=== PATIENT | female | born 1990 | race Caucasian/White ===

== ENCOUNTER 2024-11-23 21:43 | Inpatient (IN) | payer OTHER, SELFPAY ==
--- NOTE | 2024-11-23 20:38 | PCM.HP.OB ---
HPI - General General Date of Admission: 11/23/24 HPI Narrative DIANE LADD, is a 33 F at 39.4 weeks gestation who presents to triage with complaints of leaking clear fluid since 1629. Positive movements. Feeling occasional contractions. Maternal Data Information ALYCIA Calculator Estimated Delivery Date Method Current WG Current Estimate 11/26/24 Manual 39w 4d PFSH PFSH Medical History no medical history Home Medications ?Medication ?Instructions ?Recorded ?Last Taken ?Type aspirin 81 mg tablet,delayed 81 mg PO DAILY prevention of pre-e 11/23/24 11/23/24 History release ferrous sulfate 325 mg (65 mg 325 mg PO DAILY anemia 11/23/24 11/23/24 History iron) tablet (FeroSul) vit no.95-ferrous 1 tab PO DAILY 11/23/24 11/23/24 History fumarate 28 mg-folic acid 800 mcg tablet ( Multivitamins) Allergy/AdvReac Type Severity Reaction Status Date / Time No Known Allergies Allergy Verified 11/23/24 21:16 Surgical History no surgical history NST FHR Rate Baby A Baseline: 140 Variability:: Moderate Accelerations:: 15 x 15 Decelerations:: None NST Reactive:: Yes FHR Category:: Category I ROS Eyes Eyes: Denies blurry vision, change in vision or spots in vision ENT HEENT: Denies dizziness or headache(s) Cardiovascular Cardiovascular: Denies abdominal pain, chest pain or dyspnea Respiratory/Chest Respiratory/Chest: Denies cough, dyspnea, shortness of breath at rest or shortness of breath with exertion Gastrointestinal Gastrointestinal: Denies abdominal pain, diarrhea or vomiting Genitourinary Genitourinary: Denies change in urinary stream, difficulty urinating or dysuria Musculoskeletal Musculoskeletal: Reports none Integumentary Integumentary: Denies rash Neurologic Neurologic: Denies dizziness, headache(s), memory loss or weakness Psychiatric Psychiatric: Reports none Physical Exam Const alert, oriented x3 and no apparent distress General Appearance: cooperative Orientation / Consciousness: awake Exam Limitations: no limitations HEENT normocephalic Head and Scalp: normal to inspection Eyes General Eye: normal appearance of both eyes Neck full ROM and no lymphadenopathy Lymph Lymphatic: no lymphadenopathy noted Chest inspection of chest normal Resp normal respiratory effort, normal air movement and clear to auscultation bilaterally Effort and Inspection: able to speak in complete sentences and symmetric chest movement Cardio regular rate and regular rhythm GI normal to inspection, nondistended, normoactive bowel sounds Manual OB Exam: presentation cephalic Back/Spine normal ROM Extremity full ROM and no calf tenderness Skin no rashes or lesions noted General Skin Exam: no breakdown Neuro oriented x3 and CN's II-XII intact bilaterally Psych mental status grossly normal and thought process normal Labs Labs Labs: Blood Type Pending Antibody Screen Pending Hct Pending Hgb Pending Syphilis Total Ab Pending Assessment & Plan (1) Anemia affecting : (2) Positive GBS test: (3) ADD (attention deficit disorder): (4) History of anxiety: (5) Rh negative status during : (6) 39 weeks gestation of : (7) Spontaneous rupture of amniotic membranes: PLAN: Plan CE /-2 ROM plus- positive Admit to labor and delivery Routine labs GBS positive- PCN 5 million units IV x1 now and continue PCN 3 million units IV every 4 hours until delivery Desires unmedicated labor and delivery May be interested in laboring in tub/ possible water Plan is to ambulate, use birthing ball and change positions Educated on nipple stimulation Minimal cervical exams unless warranted Dr. Reynoso notified of admission and is collaborating physician
[2024-11-23 20:40] VITALS: RESP 18; TEMP 36.6
[2024-11-23 20:44] VITALS: BP 118/75; PULSE 82; O2SAT 98
[2024-11-23 21:15] VITALS: BMI 29.8
[2024-11-23 21:36] LABS: ROM Internal Control Test YES-OK TO RESULT pt. (Internal QC)
[2024-11-23 21:37] LABS: ROM Patient Test POSITIVE (Negative); Record Kit Lot#, ROM+ K3294
[2024-11-23] MEDS: Penicillin G Pot 5,000,000 UNITS in 0.9% Normal Saline (100mL MB+) 100 ML 150 UNITS IV (22:35)
[2024-11-23] MEDS: Lactated Ringers 1,000 ML 50 ML IV (22:35)
[2024-11-23 22:49] VITALS: BP 111/68; PULSE 72
[2024-11-23 22:50] VITALS: BP 113/68; PULSE 68; PULSE 74; RESP 14; TEMP 37.2; O2SAT 98
[2024-11-23 22:55] LABS: Absolute Lymphocyte Count 1.23 X10^3/uL (0.83-4.51); Absolute Neutrophil Count 8.4 X10^3/uL (2.0-7.7); Basophil# 0.03 X10^3/uL; Basophil% 0.3 % (0-1); Eosinophil# 0.05 X10^3/uL; Eosinophils% 0.5 % (0-5); Hematocrit 32.7 % (37-47); Hemoglobin 11.1 g/dL (12.0-15.0); Lymphocyte # 1.23 X10^3/ul (0.83-4.51); Lymphocyte % 11.8 % (19-41); Mean Corp Hgb Conc 33.9 g/dL (32-36); Mean Corpuscular Hgb 32.5 pg (27.0-32.0); Mean Corpuscular Volume 95.6 fL (81-99); Mean Platelet Vol. 9.8 fl (6.2-12.0); Monocyte# 0.61 X10^3/uL; Monocyte% 5.8 % (0-10); NRBC Flagged by Analyzer 0 % (0-5); Neutrophil # 8.39 X10^3/uL (2.7-7.7); Neutrophil % 80.4 % (47-70); Platelet Count 193 K/mm3 (150-450); RBC Distribution Width CV 13.1 % (11.6-14.6); RBC Distribution Width SD 45.6 fl (35.1-43.9); Red Blood Count 3.42 M/mm3 (4.2-5.4); White Blood Count 10.4 K/mm3 (4.4-11.0)
[2024-11-23 23:19] LABS: Syphilis Antibodies Nonreactive (Nonreactive)
[2024-11-24] VITALS (25 sets, daily range): BP systolic 88–115; BP diastolic 51–68; PULSE 67–106; RESP 14–19; TEMP 36.4–37.1; O2SAT 66–100
[2024-11-24] MEDS: Lactated Ringers 1,000 ML 50 ML IV (01:20)
[2024-11-24] MEDS: Amnioinfusion- 0.9% NS 1,000 ML IV.SOLN. 1000 ML INTRA-UTER (01:43)
--- NOTE | 2024-11-24 01:55 | PCM.PN.CNM ---
Subjective Subjective Called to patient's bedside for tachycardia. Objective Data Objective Data Vital Signs: Vital Signs Temp Pulse Resp BP Pulse Ox 98.2 F 87 18 113/68 100 11/24/24 00:34 11/24/24 01:05 11/23/24 20:40 11/23/24 22:50 11/24/24 01:05 Weight: 185 lb Body Mass Index (BMI) 29.8 Intake & Output: Intake and Output for Last 24 Hours 11/22/24 11/23/24 11/24/24 23:59 23:59 23:59 Intake Total 1000.00 / 1000.00 Balance 1000.00 / 1000.00 Lab / Micro Data 11/23/24 22:35 Labs: Laboratory Results - last 24 hr 11/23/24 20:54: Vag Amniotic Fld Detect POSITIVE H 11/23/24 22:35: WBC 10.4, RBC 3.42 L, Hgb 11.1 L, Hct 32.7 L, MCV 95.6, MCH 32.5 H, MCHC 33.9, RDW Std Deviation 45.6 H, RDW Coeff of Roge 13.1, Plt Count 193, MPV 9.8, Immature Gran % (Auto) 1.200 H, Neut % (Auto) 80.4 H, Lymph % (Auto) 11.8 L, [place] % (Auto) 5.8, Eos % (Auto) 0.5, Baso % (Auto) 0.3, Absolute Neuts (auto) 8.4 H, Absolute Lymphs (auto) 1.23, Nucleated RBC % 0, Syphilis Total Ab Nonreactive, Blood Type A NEGATIVE, Antibody Screen NEGATIVE Assessment & Plan (1) Spontaneous rupture of amniotic membranes: (2) 39 weeks gestation of : (3) Rh negative status during : (4) History of anxiety: (5) ADD (attention deficit disorder): (6) Positive GBS test: (7) Anemia affecting : (8) tachycardia during labor: PLAN: Plan Patient is afebrile CE 3/60/-2 Clear fluid IUPC and FSE placed Patient repositioned to hands and knees Questionable arrhythmia - difficulty due difficulty tracing heart rate/ artifact Amnio infusion started Dr. Reynoso notified and in route
--- NOTE | 2024-11-24 02:35 | PCM.PN.BLA ---
Progress Note Delayed entry. Called by CNM to assess FHT. At bedside. Patient starting to get more uncomfortable with ctx's. Otherwise offers no complaints. Assessment & Plan Assessment/Plan (1) tachycardia during labor: (2) Spontaneous rupture of amniotic membranes: (3) 39 weeks gestation of : (4) Non-reassuring heart rate or rhythm affecting management of fetus: PLAN: Delayed entry. At bedside to discuss FHT with patient and evaluate. Cvx 3/60/-2. tachycardia noted with new possible arrhythmia. Bedside TAUS performed noting tachycardia but normal appearing rhythm. FHT with minimal and moderate variability. Late and variable decelerations are noted despite resuscitative measures. Discussed with patient and partner at bedside. Shared decision making was used. The patient desires to proceed with a section. Discussed r/b/a section and consent obtained. Proceed with a section for intolerance to labor remote from delivery.
[2024-11-24] MEDS: Sodium Citrate/Citric Acid 30 ML UDC PO (02:39)
[2024-11-24] MEDS: Acetaminophen 500 MG Tablet PO (02:40)
[2024-11-24] MEDS: Azithromycin 500 MG in Dextrose 5%-Water (250mL Bag) 250 ML 255 MG IV (03:13)
[2024-11-24] MEDS: Cefazolin 2 GM in Syringe IV (03:14)
[2024-11-24] MEDS: Oxytocin 15 Units/NS 250ml 15 UNITS/250 ML IV.SOLN 334 UNITS IV (03:25)
[2024-11-24] MEDS: Ondansetron 4 MG/2 ML Vial IV (03:30)
--- NOTE | 2024-11-24 04:16 | PCM.OPRPT ---
Problems Associated Problem List Diagnoses (1) Non-reassuring heart rate or rhythm affecting management of fetus: (2) tachycardia during labor: (3) Spontaneous rupture of amniotic membranes: (4) 39 weeks gestation of : (5) cardiac arrhythmia: Operative Report (Standard) Operative Information Date of Procedure: 11/24/24 Pre-Operative Diagnosis: 39 week gestation, non reassuring heart tracing, tachycardia, arrhythmia Post-Operative Diagnosis: As above Surgery/Procedure Performed: PLTCS via pfannenstiel incision pulper tender: Yes Cylinder Tester: Claudine Rogers Tasks completed by geological survey field assistant: Retracting Type of Anesthesia: Spinal Procedure Start Time: 03:19 Procedure Stop Time: 04:00 Select all DRAINS/GRAFTS/IMPLANTS that apply: None Special Medications: None Estimated Blood Loss: 850 mL Fluids Replaced: 400 mL Specimen collected: Yes Description of specimen(s) removed: Placenta Description of surgery: Indications: The patient is a G3, P2 who presented at 39 weeks gestation with spontaneous rupture of membranes. She progressed to 3 cm dilated when the heart rate rate tracing showed intermittent minimal variability with recurrent decelerations, tachycardia, and a new arrhythmia appreciated. The patient elected for a primary section. Procedure: The patient was taken to the operating room where spinal anesthesia was found to be adequate. She was prepped and draped in the dorsal supine position with a leftward tilt. A Pfannenstiel skin incision was made using a scalpel. The incision was carried down to the underlying layer of fascia. The fascia was incised in the midline. The fascial incision was extended laterally using Ortiz scissors. The rectus muscles were in the midline. The peritoneum was entered sharply with good visualization of the bladder. The peritoneal incision was extended with lateral traction. A bladder blade was inserted. A low transverse incision was made on the uterus with a scalpel. The uterine incision was extended with cephalad and caudad traction. The head was flexed and delivered through the hysterotomy, followed by the body without any traction, force, or delay. A loose nuchal cord x 1 around the body was noted without compression. A vigorous viable female was delivered. The cord was clamped and cut after a slight delay and the was handed off to the awaiting nursery staff. The placenta was removed with manual extraction. The uterus was exteriorized. The uterus was cleared of all clot and debris. The hysterotomy was closed with 1-0 Vicryl in a running locked fashion. 2 additional eoliby-fw-[id number] sutures were placed for hemostasis. The uterus was placed back into the abdomen. Jasmyn was placed over the hysterotomy and lower uterine segment. Hemostasis was confirmed. The subfascial space was inspected and noted to be hemostatic. The fascia was closed with STRATAFIX in a running fashion. The subcutaneous space was irrigated noted to be hemostatic. The subcutaneous space was reapproximated with 3-0 Vicryl. The skin was closed with 4 Monocryl in a subcuticular fashion. Steri-Strips and a dressing were placed. Instrument, sharp, sponge counts were correct. The patient was taken to the recovery in stable condition. Surgical Findings: VFI in cephalic presentation. Loose nuchal x 1 around the body without compression. Normal appearing uterus and bilateral adnexa Complications Complications: No Admit VTE Documentation VTE Present on Admission: No VTE Mechan Device Prophylaxis: SCD's
[2024-11-24] MEDS: Oxytocin 15 Units/NS 250ml 15 UNITS/250 ML IV.SOLN 83 UNITS IV (05:45)
[2024-11-24 06:37] LABS: Pathology Specimen OB SEE PATHOLOGY REPORT
--- NOTE | 2024-11-24 06:38 | PLAC_PTH ---
PATIENT: DIANE LADD LOC: WP U#:[id number] AGE/SX: 33/F ROOM: WP006 RE11/23/[address]: Dr. Renate Reynoso DO : 1990 BED: 1 DIS: 11/25/2024 SPEC #: [id number] RECD: 11/24/24 09:43 STATUS: CARLOS REBeau #: [id number] HECTOR: 11/24/24 06:[address]: Renate Reynoso DEPT: SURGICAL PATHOLOGY RECD BY: Andrew Oliva ENTERED: 11/24/24 09:43 SP TYPE: PLACENTA OTHR DR: Delfina Cordova, [place] KNITTER-C Tissues: A - Placenta, NOS Procedures: Surgery Specimen Level V HEADER OPERATION: Primary section PRE-OP DIAGNOSIS: arrythmia TISSUE SUBMITTED: A- Placenta MICROSCOPIC DIAGNOSIS A. Placenta: * Mature third trimester placenta (493.7 grams, formalin fixed weight) with acute inflammation of the chorionic plate and focal microcalcifications * Three vessel umbilical cord with false knots * membranes with acute chorioamnionitis MICROSCOPIC DESCRIPTION Slides are reviewed. GROSS DESCRIPTION A. Received in fixative is one container labeled with the patient's name and designated Placenta. The specimen consists of a placenta with attached umbilical cord and membranes. The specimen weighs 493.7gm. The specimen consists of a placenta measuring 17 x 15 x 2.5cm with a centrally attached umbilical cord measuring 40cm in length and 1cm in diameter. The umbilical cord has a few varices in it and is twisted. The umbilical cord is at nearest 6.5cm from the edge of the placental disc. The membranes are blue-willson. The maternal surface is a darker willson and is in tact with no fibrin or infarcts identified. The umbilical cord has three vessels. A1- Umbilical cord A2- peripheral section and membranes A3- peripheral section and membranes A4- central section DIONTE.mr 11/25/2024 CPT:20710
[2024-11-24] MEDS: Ketorolac 30 MG/ML Syringe IV ×3 (06:42→17:57)
[2024-11-24] MEDS: 0.9% Saline Lock 10 ML Syringe IV ×3 (06:44→17:58)
[2024-11-24] MEDS: Acetaminophen 500 MG Tablet 1000 MG PO ×3 (07:40→20:50)
[2024-11-24] MEDS: Senna/Docusate Sodium 1 Tablet PO (12:31)
[2024-11-25] MEDS: 0.9% Saline Lock 10 ML Syringe IV (00:18)
[2024-11-25] MEDS: Ketorolac 30 MG/ML Syringe IV (00:18)
[2024-11-25 00:22] VITALS: BP 104/57; PULSE 93; RESP 16; TEMP 36.6
[2024-11-25] MEDS: Acetaminophen 500 MG Tablet 1000 MG PO ×2 (03:13→09:03)
[2024-11-25] MEDS: Ibuprofen 600 MG Tablet PO (05:46)
[2024-11-25 06:08] LABS: Hematocrit 23.7 % (37-47); Hemoglobin 8.1 g/dL (12.0-15.0); Mean Corp Hgb Conc 34.2 g/dL (32-36); Mean Corpuscular Hgb 33.1 pg (27.0-32.0); Mean Corpuscular Volume 96.7 fL (81-99); Mean Platelet Vol. 9.3 fl (6.2-12.0); Platelet Count 143 K/mm3 (150-450); RBC Distribution Width CV 13.6 % (11.6-14.6); Red Blood Count 2.45 M/mm3 (4.2-5.4); White Blood Count 11.7 K/mm3 (4.4-11.0)
[2024-11-25 08:30] VITALS: BP 103/47; PULSE 79; RESP 16; TEMP 36.5; O2SAT 98
--- NOTE | 2024-11-25 08:50 | PCM.PN.OB ---
Subjective Subjective Denies complaints Objective Data Objective Data Vital Signs: Vital Signs Temp Pulse Resp BP Pulse Ox O2 Del Method 97.9 F 93 16 104/57 L 96 Room Air 11/25/24 00:22 11/25/24 00:22 11/25/24 00:22 11/25/24 00:22 11/24/24 19:46 11/25/24 00:22 Oxygen Delivery Method Room Air Weight: 185 lb Body Mass Index (BMI) 29.8 Intake & Output: Intake and Output for Last 24 Hours 11/23/24 11/24/24 11/25/24 23:59 23:59 23:59 Intake Total 105 / 175.83 1958.33 / 1957. Output Total 2049 / 2049 Balance 105 / 175.83 -91.67 / -91.67 Lab / Micro Data 11/25/24 05:59 Labs: Laboratory Results - last 24 hr 11/25/24 05:59: WBC 11.7 H, RBC 2.45 L, Hgb 8.1 L, Hct 23.7 L, MCV 96.7, MCH 33.1 H, MCHC 34.2, RDW Std Deviation 48.0 H, RDW Coeff of Roge 13.6, Plt Count 143 L, MPV 9.3 Physical Exam Const alert, oriented x3 and no apparent distress HEENT normocephalic GI soft to palpation, non-tender and non-distended GI Narrative: fundus firm, mid & below umbilicus Incision - bandage c/d/i Extremity normal to inspection and no calf tenderness Assessment & Plan (1) Delivery by section: COMMENT: POD#1 PLAN: Plan Heme - CBC reviewed and will start iron for acute blood loss anemia ID - AF, no signs infection GI/ - no issues D/c home per patient request
--- NOTE | 2024-11-25 08:51 | PCM.DC.SUM ---
Providers Date of Admission: 11/23/24 Primary Care Physician: Delfina Cordova, [facility] Reason For Visit: PRIMARY DELIVERY Diagnosis Discharge Diagnosis (1) Delivery by section: Status: Acute Plan Heme - CBC reviewed and will start iron for acute blood loss anemia ID - AF, no signs infection GI/ - no issues D/c home per patient request Medications at Discharge Home Medications ferrous sulfate 325 mg (65 mg iron) tablet (FeroSul) 325 mg PO DAILY anemia 11/23/24 vit no.95-ferrous fumarate 28 mg-folic acid 800 mcg tablet ( Multivitamins) 1 tab PO DAILY 11/23/24 acetaminophen 500 mg tablet 1,000 mg (2 x 500 mg) PO Q6H #0 tabs 11/25/24 ibuprofen 600 mg tablet 600 mg PO Q6H #0 tabs 11/25/24 Hospital Course Operations section Procedures None Summary of Care Provided Minutes Spent on Discharge: 15 Weight / BMI Weight Weight: 185 lb Body Mass Index (BMI) 29.8 ABG / Lab / Microbiology Data 11/25/24 05:59 Laboratory: Laboratory Results - last 24 hr 11/25/24 05:59: WBC 11.7 H, RBC 2.45 L, Hgb 8.1 L, Hct 23.7 L, MCV 96.7, MCH 33.1 H, MCHC 34.2, RDW Std Deviation 48.0 H, RDW Coeff of Roge 13.6, Plt Count 143 L, MPV 9.3 D/C Instructions Discharge Diet: No restrictions Discharge Activity: May Shower May resume sexual activity in: 6 weeks Weight Bearing Status: Weight bearing as tolerated Call your doctor if your incision/area has: Continuous Slow Oozing, Sudden Increased Bleeding, Increased Pain/ Swelling, Increased Redness, Foul Smelling Discharge and Swelling at the incision site Call your doctor if you observe: Fever of 101 or Higher, Coldness, Increased Pain, Change in Color, Inability to urinate, Inability to have a bowel movement, Using more than 1 pad per hour, Shortness of breath, Dizziness, Fainting spells, Chest pain, Increased palpitations (irregular heartbeat), Calf discomfort and Uncontrolled pain Suture Line Care: Avoid Pulling/Pushing and Avoid Pinching/Bending Remove Dressing in: 1 week Cleanse incision/area with: Soap & Water DC O2, CPAP, BIPAP Needs Home O2 Discharge instructions: No Please Follow Up With: Renate Reynoso DO When: Follow up in 2 and 6 weeks for visits. Meaningful Use Info Meaningful Use Meaningful Use Diagnoses (Choose all that apply): None applicable Ischemic Stroke Statin Dosing Therapy Reference: STATIN DOSE THERAPY REFERENCE: * Patients > 75 years receive moderate or high dose statin therapy. * Patients 75 years or YOUNGER should receive HIGH intensity statin dose unless contraindicated. You will be required to document reason for non-treatment if statin daily dose does not meet guidelines. HIGH DOSE STATIN THERAPY DAILY Atorvastatin > than or = to 40 mg Rosuvastatin > than or = to 20 mg Amlodipine + Atorvastatin > than or = to 2.5/40 mg Ezetimibe + Simvastatin 10/80 mg Simvastatin 80mg Discharge Plan Admission Admit Date/Time: 11/23/24 21:43 Primary Reason for Your Visit: section Attending Provider: Renate Reynoso Primary Care Provider: Delfina Cordova NP Discharge Orders/Prescriptions Prescriptions: New acetaminophen 500 mg Tablet 1,000 mg PO Q6H Qty: 0 0RF ibuprofen 600 mg Tablet 600 mg PO Q6H Qty: 0 0RF Continued PNV cmb#95-ferrous fumarate-FA [ Multivitamins] 28 mg iron- 800 mcg tablet 1 tab PO DAILY ferrous sulfate [FeroSul] 325 mg (65 mg iron) tablet 325 mg PO DAILY Discontinued aspirin 81 mg tablet,delayed release (DR/EC) 81 mg PO DAILY Referrals / Follow Up: Delfina Cordova NP, [facility] [Primary Care Provider] - Disposition Disposition (needs filled in before D/C Order can be placed): Home, Self Care
[2024-11-25] MEDS: Senna/Docusate Sodium 1 Tablet PO (09:03)
--- NOTE | 2024-11-25 13:41 | CASEMGMT ---
Social Work Assessment Labor and Delivery Unit [place] [address] [place] [id number] Phone number: [phone] Date of Referral: 11/25/24 Time of Referral:? [phone] Referred By: Dr. Castro Date of Intervention: ?11/25/24? Time of Intervention:? 1024 Reason for Referral:?anxiety/ depression Sw completed chart review and acknowledges social work consult due to maternal mental health. Sw presented to bedside and introduced self to mother of baby (LISSY- Olga) and father of baby (MAGGIE- Jerry). Sw explained reason for sw involvement and completed psychosocial assessment. History obtained from: medical records, MOB and MAGGIE Household composition: Currently residing in the family home is MAGGIE YUAN, their two older sons: Mi (3) and Sadi (6). [place] baby to be included in residence when ready for discharge. Parents deny any problems or concerns with housing, stating it is safe and secure. Patient's parent/guardian status:? ?Parents report that they have been together for 11 years after meeting each other in high school. No problems reported regarding domestic violence or intimate partner violence. [place] baby is third baby for parents together. Medical History: ?LISSY is 33 year old female who is 3, para 2- now 3 following labor and delivery of . LISSY received routine care during with [facility]. LISSY presented to hospital and delivered baby via unexpected due to decels. Baby girl, Eveline, was born on 11/24/24 at 39 weeks gestation weighing 6lb 5oz and had apgars of 8 and 9 at one and five minutes of life, respectfully. Educational Status:? Both parents graduated from high school. LISSY obtained her Bachelor's degree and MAGGIE obtained his associates degree. No problems with reading, learning or comprehension. 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 Infant Supplies: All necessary baby supplies obtained, including: car seat, safe sleep space, clothes, diapers and wipes. Childcare/Caregiver(s):? LISSY will be the primary caregiver along with MAGGIE when he is not at work. When parents are at the hospital they have family members who are helping with their older children. Transportation:?? Both parents have their drivers license and reliable means of transportation, no barriers. Programs/Agencies Involved: ??Parents are not connected to any community agencies that assist them financially. ? Children Services/Legal Issues:??No history of children services involvement. NO problems or concerns warranting referral to be made at this time. ? Behavioral Health Issues: ??Mental Health History:?FOErickson denies mental health history. MOB states that she has been diagnosed with ADD, anxiety and depression. MOB states that her anxiety is something that she struggles with more consistently. LISSY denies being prescribed any psychotropic medications to assist her with her mental health diagnoses/ symptoms. ?? Substance Use History:?Parents deny substance use prior to and during . ? Family History:?Parents deny family history of substance use or significant mental health diagnoses. ? Drug Screens: No drug screens observed while completing chart review. Family/Social Stressors:? Parents deny any problems, stressors or concerns. Support Systems: LISSY states that MAGGIE and her mom are her biggest supports. Depression/Shaken Baby/Safe Sleeping: Rea educated parents on signs and symptoms of baby blues and depression and anxiety. LISSY reports that the muñoz she feels with may be stronger than her other two baby's. MOB states that she felt really good during this and did not struggle with any depression or anxiety. MOB states that historically she struggled with depression/ anxiety- she felt anxious, tearful/ emotional and on edge. MOB states that those symptoms did not last long. MOB states that since this is her third / delivery she feels prepared on what to expect and reports that thus far she feels really good- aside from experiencing her first . FOB states that if MOB were to struggle with her mental health, he would be able to recognize the symptoms and would know how to help and support her. Rea educated parents on shaken baby prevention and ABCs of safe sleep. Parents express understanding. ASSESSMENT:? MOB and baby admitted following labor and delivery. LISSY required primary due to decels. LISSY reports that her recovery has been much more difficult than her vaginal deliveries she had in the past. This is third baby for parents together, they report to having all necessary baby supplies and natural supports in place. LISSY has experienced menta health symptoms following deliveries in the past. MOB states that her symptoms did not last long, the strongest symptom being anxiety. MOB states that she feels well mentally at this time, denies feeling sad, anxious or depressed. MOB states that FOB is her biggest support person and he is always attentive to her needs including mentally. FOB was observed holding baby lovingly and affectionately. Both parents participated in completion of psychosocial assessment, made and maintaining eye contact throughout conversation. PLAN:?? No other services requested or indicated. MOB and baby to be discharged when medically ready. Parents were provided literature regarding: signs and symptoms of baby blues and mood and anxiety disorders, Help Me Grow, shaken baby prevention, ABCs of safe sleep and a list of county resources that are available for them should any needs present themselves. Meryl Jain, NUCLEAR EQUIPMENT SALES ENGINEER, INCIDENT MANAGER
== END 2024-11-25 11:15 | disposition home or self-care (01) | DRG 787 ==
LOC: WPOUT 21:48 → WP 21:48
PROVIDERS: Advanced Practice Midwife; Admitting Provider Obstetrics & Gynecology; PCP Nurse Practitioner Family; Visit Provider Obstetrics & Gynecology
DX: O42.02 Full-term premature rupture of membranes, onset of labor within 24 hours of rupture (principal); D62 Acute posthemorrhagic anemia; O26.893 Other specified pregnancy related conditions, third trimester; O76 Abnormality in fetal heart rate and rhythm complicating labor and delivery; Z37.0 Single live birth; O99.824 Streptococcus B carrier state complicating childbirth; O69.82X0 Labor and delivery complicated by other cord entanglement, without compression, not applicable or unspecified; O90.81 Anemia of the puerperium; Z67.91 Unspecified blood type, Rh negative; Z3A.39 39 weeks gestation of pregnancy
CPT/HCPCS: 59025; 59050; 76815; 84112; 85025; 85027; 86780; 86850; 86900; 86901; 88307; 99221; A4216; G0378; J2405